=== PATIENT | female | born 1995 | race Hispanic/Latino ===

== ENCOUNTER 2019-06-29 15:35 | Emergency (ER) | payer MEDICAID ==
--- NOTE | 2019-06-29 16:07 | Event Note ---
ED Screening Note ED Screening Note: pt presents with N/V/D that began today lightheaded and generalized weakness This initial assessment/diagnostic orders/clinical plan/treatment(s) is/are subject to change based on patients health status, clinical progression and re- assessment by fellow clinical providers in the ED. Further treatment and workup at subsequent clinical providers discretion. Patient/guardian urged not to elope from the ED as their condition may be serious if not clinically assessed and managed. Initial orders include: labs, UA
[2019-06-29 16:09] VITALS: BP 132/84
[2019-06-29 16:21] LABS: Basophils # (Auto) 0.1 K/mm3 (0.0-0.1); Basophils % (Auto) 0.6 % (0.0-1.8); Eosinophils # (Auto) 0.4 K/mm3 (0.0-0.4); Eosinophils % (Auto) 2.7 % (0.0-4.3); Hematocrit 41.6 % (30.3-42.9); Hemoglobin 14.2 gm/dl (10.1-14.3); Lymphocytes # (Auto) 3.4 K/mm3 (1.2-5.4); Lymphocytes % (Auto) 22.3 % (13.4-35.0); Mean Corpuscular HGB Conc 34 % (30-34); Mean Corpuscular Volume 86 fl (79-97); Monocytes % (Auto) 6.4 % (0.0-7.3); Platelet Count 364 K/mm3 (140-440); Red Blood Count 4.86 M/mm3 (3.65-5.03); Red Cell Distribution Width 13.5 % (13.2-15.2)
[2019-06-29 16:35] LABS: Alanine Aminotransferase 42 units/L (7-56); Albumin 4.5 g/dL (3.9-5); BUN/Creatinine Ratio 10; Blood Urea Nitrogen 7 mg/dL (7-17); Calcium 10.1 mg/dL (8.4-10.2); Hemolysis Index 13
[2019-06-29] MEDS ORDERED: NACL 0.9% 1000 ML 1,000 ML IV ONE (16:47)
--- NOTE | 2019-06-29 16:47 | Emergency Department Report ---
ED Dizziness HPI - General Chief Complaint: Dizziness Stated Complaint: DIZZINESS Time Seen by Provider: 06/29/19 16:06 Source: patient Mode of arrival: Ambulatory Limitations: No Limitations - History of Present Illness Initial Comments: Patient is a 24-year-old female Emergency room with complaints of dizziness and leg weakness. Patient states she was walking and became dizzy and felt like her legs were weak. Patient states her symptoms are better with rest and worse with exertion and movement. Patient denies chest pain shortness of breath. Patient denies cough and fever. Patient states she smokes. Patient denies past medical history except for seizures for which she is taking medications. MD Complaint: dizziness -: Sudden Timing: sudden onset Description: sense of movement, lightheadedness History of Same: No History of Trauma: No Severity: severe Improves With: rest Worsens With: movement, position, exertion Associated Symptoms: weakness. denies: ataxia, chest pain, confusion, cough, diaphoresis, fever/chills, loss of appetite, malaise, rash, seizure, shortness of breath, syncope - Related Data Allergies Allergy/AdvReac Type Severity Reaction Status Date / Time aripiprazole [From Abilify] Allergy Unknown Verified 06/29/19 15:35 ED Review of Systems ROS: Stated complaint: DIZZINESS Other details as noted in HPI Constitutional: weakness. denies: chills, fever Eyes: denies: eye pain, eye discharge, vision change ENT: denies: ear pain, throat pain Respiratory: denies: cough, shortness of breath, wheezing Cardiovascular: denies: chest pain, palpitations Endocrine: no symptoms reported Gastrointestinal: denies: abdominal pain, nausea, diarrhea Genitourinary: denies: urgency, dysuria, discharge Musculoskeletal: denies: back pain, joint swelling, arthralgia Skin: denies: rash, lesions Neurological: weakness. denies: headache, paresthesias Psychiatric: denies: anxiety, depression Hematological/Lymphatic: denies: easy bleeding, easy bruising ED Past Medical Hx - Past Medical History Previous Medical History?: Yes Hx Seizures: Yes - Surgical History Past Surgical History?: No - Family History Family history: no significant - Social History Smoking Status: Current Every Day Smoker Substance Use Type: None ED Physical Exam - General Limitations: No Limitations General appearance: alert, in no apparent distress - Head Head exam: Present: atraumatic, normocephalic - Eye Eye exam: Present: normal appearance, PERRL, EOMI Pupils: Present: normal accommodation - ENT ENT exam: Present: mucous membranes dry - Neck Neck exam: Present: normal inspection - Respiratory Respiratory exam: Present: normal lung sounds bilaterally. Absent: respiratory distress, wheezes, rales - Cardiovascular Cardiovascular Exam: Present: regular rate, normal rhythm. Absent: systolic murmur, diastolic murmur, rubs, gallop - GI/Abdominal GI/Abdominal exam: Present: soft, normal bowel sounds. Absent: distended, tenderness, guarding - Rectal Rectal exam: Present: deferred - Extremities Exam Extremities exam: Present: normal inspection - Back Exam Back exam: Present: normal inspection - Neurological Exam Neurological exam: Present: alert, oriented X3 - Psychiatric Psychiatric exam: Present: normal affect, normal mood - Skin Skin exam: Present: warm, dry, intact, normal color. Absent: rash ED Course Vital Signs 06/29/19 16:06 Temperature 98.3 F Pulse Rate 97 H Respiratory 16 Rate Blood Pressure 132/84 [Left] O2 Sat by Pulse 97 Oximetry - Reevaluation(s) Reevaluation #1: I discussed all results the patient. Patient states she is feeling better. Patient tolerated by mouth intake. Patient had her fluids. Patient SAYS all of her symptoms have resolved. Patient is given discharge instructions. Patient voiced understanding of discharge instructions. Patient agrees with plan of care discharge. Patient is stable for discharge. Patient was discharged home 06/29/19 18:58 ED Medical Decision Making - Lab Data Result diagrams: 06/29/19 16:10 06/29/19 16:10 - Radiology Data Radiology results: report reviewed, image reviewed CHEST 1 VIEW 06/29/2019 5:41 PM INDICATION / CLINICAL INFORMATION: dizzy. COMPARISON: None available. FINDINGS: SUPPORT DEVICES: None. HEART / MEDIASTINUM: No significant abnormality. LUNGS / PLEURA: No significant pulmonary or pleural abnormality. No pneumothorax. ADDITIONAL FINDINGS: No significant additional findings. IMPRESSION: 1. No acute findings. - Medical Decision Making Patient is a 24-year-old female seen with dizziness and leg weakness. Patient's symptoms secondary to poor by mouth intake and being outside in heat. Patient's symptoms consistent with heat exhaustion. Patient given food and fluids and her symptoms improved. Patient will be discharged home. Patient stable for discharge. Patient's labs unremarkable. Patient's chest x-ray negative. - Differential Diagnosis dizziness. Heat exhausted. Dehydration. Critical care attestation.: If time is entered above; I have spent that time in minutes in the direct care of this critically ill patient, excluding procedure time. ED Disposition Clinical Impression: Dehydration, Dizziness Heat exhaustion Qualifiers: Encounter type: initial encounter Qualified Code(s): T67.5XXA - Heat exhaustion, unspecified, initial encounter Disposition: TO HOME OR SELFCARE Is pt being admited?: No Does the pt Need Aspirin: No Condition: Stable Instructions: Heat Exhaustion (ED), Dizziness (ED), Fatigue (ED), Muscle Cramp (ED) Additional Instructions: Patient follow up with primary care 2-3 days. Patient to return to ER if condition worsens. Patient to increase fluids. Patient to take Tylenol or ibuprofen when necessary for pain. Patient to rest. Patient to stay out of the heat. Patient to avoid strenuous exercise or strenuous activities until cleared by primary care. Referrals: PRIMARY CARE, [Primary Care Provider] - 2-3 Days Time of Disposition: 19:03
--- NOTE | 2019-06-29 18:21 | XRay Report ---
CHEST 1 VIEW 06/29/2019 5:41 PM INDICATION / CLINICAL INFORMATION: dizzy. COMPARISON: None available. FINDINGS: SUPPORT DEVICES: None. HEART / MEDIASTINUM: No significant abnormality. LUNGS / PLEURA: No significant pulmonary or pleural abnormality. No pneumothorax. ADDITIONAL FINDINGS: No significant additional findings. IMPRESSION: 1. No acute findings. Signer Name: Meagan Gore MD Signed: 06/29/2019 6:17 PM Workstation Name: [id number]
== END 2019-06-29 19:10 | disposition home or self-care (01) ==
LOC: ED 15:35
DX: T67.5XXA Heat exhaustion, unspecified, initial encounter (principal); E86.0 Dehydration; F17.200 Nicotine dependence, unspecified, uncomplicated; Z88.8 Allergy status to other drugs, medicaments and biological substances; X30.XXXA Exposure to excessive natural heat, initial encounter; Y93.89 Activity, other specified; Y92.89 Other specified places as the place of occurrence of the external cause; Y99.8 Other external cause status
CPT/HCPCS: 36415; 71045; 80053; 82550; 83690; 84703; 85025; 96360; 99284; J7030